=== PATIENT | female | born 1970 | race African-American/Black ===

== ENCOUNTER 2020-02-09 14:57 | Emergency (ER) | payer BC ==
[~2020-02-09] VITALS: Ht 160 cm; Wt 113.9 kg
[2020-02-09] MEDS ORDERED: LOSARTAN-HCTZ1 EACH PO (15:40)
[2020-02-09] MEDS ORDERED: CLONIDINE HCL0.1 MG PO (15:40)
--- NOTE | 2020-02-09 15:40 | Emergency Department Note ---
History of Present Illnes History of Present Illness Chief Complaint: Hypertension History of Present Illness This is a 49 year old female . Historian: Patient Arrival Mode: [facility] Treatment UNDERWRITING ASSISTANT: IV Past Medical/Family History Physician Review I have reviewed the patient's past medical and family history. Any updates have been documented here. Past Medical History Recent Fever: No Clinical Suspicion of Infectio: No New/Unexplained Change in Ment: No Past Medical History: Hypertension Past Surgical History: Other Surgery: gastric band Physical Exam Related Data Allergies: Coded Allergies: No Known Allergies (Unverified , 02/09/20) Triage Vital Signs Vital Signs Date Time Temp Pulse Resp B/P (MAP) Pulse Ox O2 Delivery O2 Flow Rate FiO2 02/09/20 15:06 98.4 76 17 177/118 100 Room Air Physical Exam CONSTITUTIONAL HENT EYES NECK PULMONARY CARDIOVASCULAR GASTROINTESTINAL GENITOURINARY SKIN MUSCULOSKELETAL NEUROLOGICAL PSYCHOLOGICAL Assessment & Plan Assessment & Plan Final Impression: (1) Hypertension Depart Disposition: HOME, SELF-CARE Last Vital Signs Date Time Temp Pulse Resp B/P (MAP) Pulse Ox O2 Delivery O2 Flow Rate FiO2 02/09/20 15:06 98.4 76 17 177/118 100 Room Air Home Meds Active Scripts Clonidine Hcl (CLONIDINE HCL) 0.1 Mg Tablet, 1 TAB PO Q8H PRN for ELEVATED BLOOD PRESSURE, #30 TAB PRN SYSTOLIC BLOOD PRESSURE IS GREATER THAN 160 Prov:PRESTON JONES 02/09/20 Losartan/Hydrochlorothiazide (LOSARTAN-HCTZ 50-12.5 MG TAB) 1 Each Tablet, 1 TAB PO Q12H, #60 TAB Prov:PRESTON JONES 02/09/20 PRESTON JONES Feb 09, 2020 15:40
== END 2020-02-09 16:05 | disposition home or self-care (01) ==
LOC: ER 15:05
DX: I10 Essential (primary) hypertension (principal); Z98.84 Bariatric surgery status
CPT/HCPCS: 93005; 99284